=== PATIENT | female | born 2000 | race American Indian/Alaskan Native ===

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

== ENCOUNTER 2018-03-20 14:16 | Emergency (ER) | payer SELFPAY | END 2018-03-20 17:59 | disposition left against medical advice (07) | LOC: ED 14:16 | DX: Z11.1 Encounter for screening for respiratory tuberculosis (principal); Z53.21 Procedure and treatment not carried out due to patient leaving prior to being seen by health care provider ==

== ENCOUNTER 2020-08-02 02:22 | Outpatient (CLI) | payer SELFPAY ==
--- NOTE | 2020-08-02 00:30 | Emergency Department Report ---
Blank Doc - Documentation Documentation: 20-year-old female that presents with vaginal bleeding and pelvic pain. Patient stated she is unsure how far along she is but believes that she is about 6 months . Patient was sent to L&D which then was sent back due to no confirmation of . 1- This initial assessment/diagnostic orders/clinical plan/ treatment(s) is/are subject to change based on pt's health status, clinical progression and re- assessment by fellow clinical providers in the ED. Further treatment and workup at subsequent clinical provers discretion. Patient/guardians urged not to elope from ED as their condition may be serious if not clinically assessed and managed. 2-labs 3-UA 4-ultrasound OB
[2020-08-02 01:36] LABS: Basophils # (Auto) 0.1 K/mm3 (0.0-0.1); Basophils % (Auto) 0.7 % (0.0-1.8); Eosinophils # (Auto) 0.1 K/mm3 (0.0-0.4); Hematocrit 26.1 % (30.3-42.9); Hemoglobin 8.3 gm/dl (10.1-14.3); Lymphocytes % (Auto) 16.6 % (13.4-35.0); Mean Corpuscular HGB Conc 32 % (30-34); Platelet Count 451 K/mm3 (140-440); Red Blood Count 4.02 M/mm3 (3.65-5.03); Red Cell Distribution Width 17.9 % (13.2-15.2)
[2020-08-02 01:37] LABS: INR 0.93 (0.87-1.13); Mean Corpuscular Volume 65 fl (79-97)
[2020-08-02 01:38] LABS: Partial Thromboplastin Time 25.5 Sec. (24.2-36.6)
[2020-08-02 01:59] LABS: Platelet Estimate Consistent w Auto; Total Cells Counted 100
--- NOTE | 2020-08-02 02:02 | Emergency Department Report ---
ED HPI - General Chief complaint: Vaginal Bleeding Stated complaint: SPOTTING BLOOD//WKS UNKNOWN Time Seen by Provider: 08/02/20 00:28 Source: patient Mode of arrival: Ambulatory Limitations: No Limitations - History of Present Illness Initial comments: This is a 20-year-old female nontoxic, well nourished in appearance, no acute signs of distress presents to the ED with c/o of vaginal bleeding and pelvic pain times several days. Patient stated she is unsure how far along she is but believes she is about 6 months . Patient denies any abdominal pain. Patient denies any vaginal discharge or foul odor. Patient denies any nausea, vomiting, chest pain, shortness of breathe, fever, chills, headache, stiff neck, numbness, tingling. Patient denies any urinary symptoms. Patient denies any allergies or PMH. MD Complaint: vaginal bleeding -: days(s) Location: pelvis Radiation: none Severity: mild Severity scale (0 -10): 3 Quality: cramping Consistency: constant Improves with: none Worsens with: none Associated symptoms: vaginal bleeding. denies: nausea/vomiting, vaginal discharge, abdominal pain, dysuria, headache, vision changes, malaise, dys paruenia, rash, seizure, shortness of breath, syncope, weakness Vaginal bleeding: light :: Yes Pre- care: none - Related Data Previous Rx's Medication Instructions Recorded Last Taken Type Ferrous Sulfate 325 mg PO BID #60 tablet. 08/12/17 Unknown Rx HYDROcodone/APAP 5-325 [[place] 1 each PO Q6HR PRN #30 tablet 08/12/17 Unknown Rx 5/325] Ibuprofen [Motrin] 600 mg PO Q8H PRN #30 tablet 08/12/17 Unknown Rx Allergies Allergy/AdvReac Type Severity Reaction Status Date / Time No Known Allergies Allergy Unverified 05/23/15 12:32 ED Review of Systems ROS: Stated complaint: SPOTTING BLOOD//WKS UNKNOWN Other details as noted in HPI Comment: All other systems reviewed and negative Constitutional: denies: chills, fever Eyes: denies: eye pain, eye discharge, vision change ENT: denies: ear pain, throat pain Respiratory: denies: cough, shortness of breath, wheezing Cardiovascular: denies: chest pain, palpitations Endocrine: no symptoms reported Gastrointestinal: denies: abdominal pain, nausea, diarrhea Genitourinary: abnormal menses. denies: urgency, dysuria, discharge Musculoskeletal: denies: back pain, joint swelling, arthralgia Skin: denies: rash, lesions Neurological: denies: headache, weakness, paresthesias Psychiatric: denies: anxiety, depression Hematological/Lymphatic: denies: easy bleeding, easy bruising ED Past Medical Hx - Past Medical History Previous Medical History?: No Hx Hypertension: No Hx Congestive Heart Failure: No Hx Diabetes: No Hx Deep Vein Thrombosis: No Hx Renal Disease: No Hx Sickle Cell Disease: No Hx Seizures: No Hx Asthma: No Hx COPD: No Hx HIV: No - Social History Smoking Status: Current Some Day Smoker - Medications Home Medications: Home Medications Medication Instructions Recorded Confirmed Last Taken Type Ferrous Sulfate 325 mg PO BID #60 tablet. 08/12/17 Unknown Rx HYDROcodone/APAP 5-325 [[place] 1 each PO Q6HR PRN #30 tablet 08/12/17 Unknown Rx 5/325] Ibuprofen [Motrin] 600 mg PO Q8H PRN #30 tablet 08/12/17 Unknown Rx ED Physical Exam - General Limitations: No Limitations General appearance: alert, in no apparent distress - Head Head exam: Present: atraumatic, normocephalic - Eye Eye exam: Present: normal appearance - Neck Neck exam: Present: normal inspection, full ROM - Respiratory Respiratory exam: Absent: respiratory distress - Cardiovascular Cardiovascular Exam: Present: regular rate - GI/Abdominal GI/Abdominal exam: Present: soft, normal bowel sounds. Absent: distended, tenderness, guarding, rebound, rigid, diminished bowel sounds - Extremities Exam Extremities exam: Present: normal inspection, full ROM - Back Exam Back exam: Present: normal inspection, full ROM. Absent: tenderness, CVA tenderness (R), CVA tenderness (L), muscle spasm, paraspinal tenderness, vertebral tenderness, rash noted - Neurological Exam Neurological exam: Present: alert, oriented X3, normal gait - Psychiatric Psychiatric exam: Present: normal affect, normal mood - Skin Skin exam: Present: warm, dry, intact, normal color. Absent: rash ED Course Vital Signs 08/02/20 00:48 Temperature 98.4 F Pulse Rate 90 Respiratory 17 Rate Blood Pressure 132/87 O2 Sat by Pulse 98 Oximetry - Reevaluation(s) Reevaluation #1: 08/02/20 02:01 Patient is speaking in full sentences with no signs of distress noted. ED Medical Decision Making - Lab Data Result diagrams: 08/02/20 00:46 Lab Results 08/02/20 08/02/20 08/02/20 Range/Units 00:46 00:46 00:46 WBC 11.9 H (4.5-11.0) K/mm3 RBC 4.02 (3.65-5.03) M/mm3 Hgb 8.3 L (10.1-14.3) gm/dl Hct 26.1 L (30.3-42.9) % MCV 65 L (79-97) fl MCH 21 L (28-32) pg MCHC 32 (30-34) % RDW 17.9 H (13.2-15.2) % Plt Count 451 H (140-440) K/mm3 Lymph % (Auto) 16.6 (13.4-35.0) % [place] % (Auto) 8.0 H (0.0-7.3) % Eos % (Auto) 1.0 (0.0-4.3) % Baso % (Auto) 0.7 (0.0-1.8) % Lymph # (Auto) 2.0 (1.2-5.4) K/mm3 [place] # (Auto) 1.0 H (0.0-0.8) K/mm3 Eos # (Auto) 0.1 (0.0-0.4) K/mm3 Baso # (Auto) 0.1 (0.0-0.1) K/mm3 Add Manual Diff Complete Total Counted 100 Seg Neutrophils % 73.7 H (40.0-70.0) % Seg Neuts % (Manual) 74.0 H (40.0-70.0) % Lymphocytes % (Manual) 17.0 (13.4-35.0) % Monocytes % (Manual) 8.0 H (0.0-7.3) % Eosinophils % (Manual) 1.0 (0.0-4.3) % Nucleated RBC % Not Reportable Seg Neutrophils # 8.7 H (1.8-7.7) K/mm3 Seg Neutrophils # Man 8.8 H (1.8-7.7) K/mm3 Band Neutrophils # 0.0 K/mm3 Lymphocytes # (Manual) 2.0 (1.2-5.4) K/mm3 Abs React Lymphs (Man) 0.0 K/mm3 Monocytes # (Manual) 1.0 H (0.0-0.8) K/mm3 Eosinophils # (Manual) 0.1 (0.0-0.4) K/mm3 Basophils # (Manual) 0.0 (0.0-0.1) K/mm3 Metamyelocytes # 0.0 K/mm3 Myelocytes # 0.0 K/mm3 Promyelocytes # 0.0 K/mm3 Blast Cells # 0.0 K/mm3 WBC Morphology Not Reportable Hypersegmented Neuts Not Reportable Hyposegmented Neuts Not Reportable Hypogranular Neuts Not Reportable Smudge Cells Not Reportable Toxic Granulation Not Reportable Toxic Vacuolation Not Reportable Dohle Bodies Not Reportable Pelger-Huet Anomaly Not Reportable Talia Rods Not Reportable Platelet Estimate Consistent w auto Clumped Platelets Not Reportable Plt Clumps, EDTA Not Reportable Large Platelets Not Reportable Giant Platelets Not Reportable Platelet Satelliting Not Reportable Plt Morphology Comment Not Reportable RBC Morphology Not Reportable Dimorphic RBCs Not Reportable Polychromasia Not Reportable Hypochromasia Not Reportable Poikilocytosis Not Reportable Anisocytosis Not Reportable Microcytosis Not Reportable Macrocytosis Not Reportable Spherocytes Not Reportable Pappenheimer Bodies Not Reportable Sickle Cells Not Reportable Target Cells Not Reportable Tear Drop Cells Not Reportable Ovalocytes Not Reportable Helmet Cells Not Reportable [place] Bodies Not Reportable [place] Rings Not Reportable [place] Cells Not Reportable Bite Cells Not Reportable Crenated Cell Not Reportable Elliptocytes Not Reportable Acanthocytes (Spur) Not Reportable Rouleaux Not Reportable Hemoglobin C Crystals Not Reportable Schistocytes Not Reportable Malaria parasites Not Reportable Noel Bodies Not Reportable Hem Pathologist Commnt No PT 12.4 (12.2-14.9) Sec. INR 0.93 (0.87-1.13) APTT 25.5 (24.2-36.6) Sec. HCG, Quant 8501 H (0-4) mIU/mL Blood Type 08/02/20 Range/Units 00:46 WBC (4.5-11.0) K/mm3 RBC (3.65-5.03) M/mm3 Hgb (10.1-14.3) gm/dl Hct (30.3-42.9) % MCV (79-97) fl MCH (28-32) pg MCHC (30-34) % RDW (13.2-15.2) % Plt Count (140-440) K/mm3 Lymph % (Auto) (13.4-35.0) % [place] % (Auto) (0.0-7.3) % Eos % (Auto) (0.0-4.3) % Baso % (Auto) (0.0-1.8) % Lymph # (Auto) (1.2-5.4) K/mm3 [place] # (Auto) (0.0-0.8) K/mm3 Eos # (Auto) (0.0-0.4) K/mm3 Baso # (Auto) (0.0-0.1) K/mm3 Add Manual Diff Total Counted Seg Neutrophils % (40.0-70.0) % Seg Neuts % (Manual) (40.0-70.0) % Lymphocytes % (Manual) (13.4-35.0) % Monocytes % (Manual) (0.0-7.3) % Eosinophils % (Manual) (0.0-4.3) % Nucleated RBC % Seg Neutrophils # (1.8-7.7) K/mm3 Seg Neutrophils # Man (1.8-7.7) K/mm3 Band Neutrophils # K/mm3 Lymphocytes # (Manual) (1.2-5.4) K/mm3 Abs React Lymphs (Man) K/mm3 Monocytes # (Manual) (0.0-0.8) K/mm3 Eosinophils # (Manual) (0.0-0.4) K/mm3 Basophils # (Manual) (0.0-0.1) K/mm3 Metamyelocytes # K/mm3 Myelocytes # K/mm3 Promyelocytes # K/mm3 Blast Cells # K/mm3 WBC Morphology Hypersegmented Neuts Hyposegmented Neuts Hypogranular Neuts Smudge Cells Toxic Granulation Toxic Vacuolation Dohle Bodies Pelger-Huet Anomaly Talia Rods Platelet Estimate Clumped Platelets Plt Clumps, EDTA Large Platelets Giant Platelets Platelet Satelliting Plt Morphology Comment RBC Morphology Dimorphic RBCs Polychromasia Hypochromasia Poikilocytosis Anisocytosis Microcytosis Macrocytosis Spherocytes Pappenheimer Bodies Sickle Cells Target Cells Tear Drop Cells Ovalocytes Helmet Cells [place]ante-[place] Bodies [place] Rings [place] Cells Bite Cells Crenated Cell Elliptocytes Acanthocytes (Spur) Rouleaux Hemoglobin C Crystals Schistocytes Malaria parasites Noel Bodies Hem Pathologist Commnt PT (12.2-14.9) Sec. INR (0.87-1.13) APTT (24.2-36.6) Sec. HCG, Quant (0-4) mIU/mL Blood Type A POSITIVE - Radiology Data Referring Physician: YO CHENEY Patient Name: MICHAEL MORA Date of : 2000 Sex: Female Report Date: 2020-08-02 Report Status: Finalized [facility] [address] [place] [address] Ultrasound Report Signed Patient: MICHAEL MORA MR#: [id number] : 2000 Acct:[id number] Age/Sex: 20 / F ADM Date: 08/02/20 Loc: ED Attending Dr: Ordering Physician: YO CHENEY NP Date of Service: 08/02/20 Procedure(s): US OB >= 14 weeks Fetus Accession Number(s): [id number] cc: YO CHENEY NP ULTRASOUND OBSTETRIC INDICATION / CLINICAL INFORMATION: vaginal bleeding and pelvic pain. Clinical Gestational Age (GA) in weeks, days: 23, 0 TECHNIQUE: Transabdominal. COMPARISON: None available. FINDINGS: Single intrauterine . Biparietal Diameter = 5.2 cm = 21, 5 weeks, days Head Circumference = 19.9 cm = 22, 1 weeks, days Abdominal Circumference = 15.2 cm = 20, 3 weeks, days Femur Length = 3.8 cm = 22, 0 weeks, days Average Ultrasound Age (AUA) = 21, 4 weeks, days Heart Rate: 156 beats per minute. Estimated Weight in grams (if calculated): 411 Estimated Weight Growth Percentile (if calculated): Not calculated ANATOMY: organs (including the bladder, stomach, kidneys, heart, umbilical cord, diaphragm, cord insertion, spine and intracranial structures) are visualized and show no significant abnormality with the following exception(s): None. Position: cephalic. Cervix: closed. Length in cm (if measured): 3.4 Placenta: posterior and free of the os. Amniotic Fluid Volume: normal Amniotic Fluid Index (CRISTÓBAL) in cm (if calculated): Not calculated. Maternal Adnexa: No significant abnormality. IMPRESSION: 1. Single, living intrauterine with estimated sonographic age of 21, 4 weeks, days. 2. No significant sonographic abnormality. Signer Name: Rena Magana MD Signed: 08/02/2020 1:58 AM [facility]station [id number] Transcribed By: DT Dictated By: Toby Magana MD Electronically Authenticated By: Toby Magana MD Signed Date/Time: 08/02/20157 DD/ 2 TD/TT: - Medical Decision Making 21-year-old female that presents with threatened miscarriage. Patient is stable and was examined by me. Ultrasound measures patient is about 22 weeks. Patient is notified of the results with no questions noted by the patient. Patient is transferred to L&D floor for further evaluation and treatment by RN. At time of transfer, the patient does not seem toxic or ill in appearance. No acute signs of distress noted. Patient agrees to treatment plan of care. No further questions noted by the patient. Critical care attestation.: If time is entered above; I have spent that time in minutes in the direct care of this critically ill patient, excluding procedure time. ED Disposition Clinical Impression: Threatened miscarriage Qualifiers: Weeks of gestation: 22 weeks Qualified Code(s): Z3A.22 - 22 weeks gestation of Disposition: DC-01 TO HOME OR SELFCARE Is pt being admited?: No Does the pt Need Aspirin: No Condition: Stable Time of Disposition: 02:16
[2020-08-02 03:12] VITALS: BP 122/72
[2020-08-02] MEDS ORDERED: LACTATED RINGERS 1,000 ML IV ONE (03:12)
[2020-08-02 03:49] LABS: Mucus,Urine FEW /HPF
[2020-08-02 03:59] LABS: Bacteria,Urine 1+ /HPF (Negative); Bilirubin,Urine NEG (Negative); Blood,Urine SM (Negative); Color,Urine Yellow (Yellow); Protein,Urine <15 mg/dL mg/dL (Negative); Urobilinogen,Urine < 2.0 mg/dL (<2.0)
[2020-08-02 04:05] LABS: Amphetamine Screen,Urine PRESUMPTIVE NEGATIVE; Benzodiazepines Screen,Urine PRESUMPTIVE NEGATIVE; Cannabinoid Screen,Urine PRESUMPTIVE POSITIVE; Cocaine Screen,Urine PRESUMPTIVE NEGATIVE; Methadone Screen,Urine PRESUMPTIVE NEGATIVE; Opiate Screen,Urine PRESUMPTIVE NEGATIVE
== END 2020-08-02 04:45 | disposition home or self-care (01) ==
LOC: TRG 02:22 → EDSTATUS 02:24 → APU 02:27 → TRG 04:45
PROVIDERS: ATTEND Obstetrics & Gynecology
DX: O26.852 Spotting complicating pregnancy, second trimester (principal); Z3A.21 21 weeks gestation of pregnancy
CPT/HCPCS: 36415; 59025; 76805; 80307; 81001; 84702; 85007; 85025; 85610; 85730; 86900; 86901; 87086

== ENCOUNTER 2020-10-29 13:31 | Outpatient (CLI) | payer SELFPAY ==
[2020-10-29 14:08] VITALS: BP 117/75
[2020-10-29] MEDS ORDERED: ACETAMINOPHEN 500 MG TAB PO ONE (14:11)
[2020-10-29] MEDS ORDERED: LACTATED RINGERS 1,000 ML IV SCH (14:15)
[2020-10-29 14:42] LABS: Bilirubin,Urine NEG (Negative); Blood,Urine NEG (Negative); Color,Urine Yellow (Yellow); Mucus,Urine 1+ /HPF; Protein,Urine <15 mg/dL mg/dL (Negative); Urobilinogen,Urine < 2.0 mg/dL (<2.0)
[2020-10-29 14:48] LABS: Amphetamine Screen,Urine PRESUMPTIVE NEGATIVE; Benzodiazepines Screen,Urine PRESUMPTIVE NEGATIVE; Cannabinoid Screen,Urine PRESUMPTIVE POSITIVE; Cocaine Screen,Urine PRESUMPTIVE NEGATIVE; Methadone Screen,Urine PRESUMPTIVE NEGATIVE; Opiate Screen,Urine PRESUMPTIVE NEGATIVE
== END 2020-10-29 16:22 | disposition home or self-care (01) ==
LOC: TRG 13:31 → APU 13:32 → TRG 16:22
PROVIDERS: ATTEND Obstetrics & Gynecology
DX: O47.03 False labor before 37 completed weeks of gestation, third trimester (principal); Z3A.33 33 weeks gestation of pregnancy
CPT/HCPCS: 59025; 80307; 81001; 87086

== ENCOUNTER 2020-11-26 18:05 | Inpatient (IN) | payer MEDICAID ==
[2020-11-26] MEDS ORDERED: LACTATED RINGERS 1,000 ML IV ONE (20:02)
[2020-11-26 20:21] LABS: Basophils # (Auto) 0.1 K/mm3 (0.0-0.1); Basophils % (Auto) 0.6 % (0.0-1.8); Eosinophils % (Auto) 0.4 % (0.0-4.3); Hematocrit 21.6 % (30.3-42.9); Hemoglobin 6.6 gm/dl (10.1-14.3); Lymphocytes # (Auto) 1.6 K/mm3 (1.2-5.4); Lymphocytes % (Auto) 15.2 % (13.4-35.0); Mean Corpuscular HGB Conc 31 % (30-34); Monocytes # (Auto) 0.9 K/mm3 (0.0-0.8); Monocytes % (Auto) 8.4 % (0.0-7.3); Platelet Count 392 K/mm3 (140-440); Red Blood Count 3.59 M/mm3 (3.65-5.03); Red Cell Distribution Width 18.9 % (13.2-15.2)
[2020-11-26 20:28] LABS: Mean Corpuscular Volume 60 fl (79-97)
[2020-11-26 20:51] LABS: Hepatitis C Virus Antibody Non-Reactive (NonReactive)
[2020-11-26] MEDS ORDERED: diphenhydrAMINE 25 MG CAP PO PRN (20:59)
[2020-11-26] MEDS ORDERED: ONDANSETRON 4 MG/2 ML INJ IV PRN (20:59)
[2020-11-26] MEDS ORDERED: DOCUSATE SODIUM 100 MG CAP PO PRN (20:59)
[2020-11-26] MEDS ORDERED: MAGNESIUM HYDROXIDE (MOM) ORAL LIQD UDC PO PRN (20:59)
[2020-11-26] MEDS ORDERED: ACETAMINOPHEN 325 MG TAB PO PRN (20:59)
[2020-11-26] MEDS ORDERED: ALUM-MAG HYDROXIDE-SIMETHICONE 200-200-20MG/5ML ORAL LIQD 30 ML PO PRN (20:59)
[2020-11-26] MEDS ORDERED: LACTATED RINGERS 1,000 ML IV SCH (21:00)
--- NOTE | 2020-11-26 21:03 | History and Physical Report ---
History of Present Illness Date of examination: 11/26/20 (No PNC, abdominal pain, dizzy) Date of admission: 11/26/2020 Chief complaint: I'm feeling dizzy and my cervix hurts. History of present illness: Pt is a 20 y.o. @ 36.5 wks per her stated LMP. Ultrasound on 08/02/20 gave her a gestational age of 21.4 wks, which would give her a EDC of 12/09/20, 38.1 wks. She has had no PNC this . Presented to triage because "my cervix hurt and I'm dizzy. I'm also having contractions, I think my water broke, and I haven't had anything to eat since last night." CBC drawn while in triage and H/H was found to be 6.6/21.6. Past History Past Medical History: no pertinent history Past Surgical History: no surgical history ORDER PULLER History: other (She had a in 2014 @ 40 weeks with limited PNC and elevated blood pressures at the end of her . @ 39+ wks 2018 limited to no PNC. ) Family/Genetic History: none Social history: smoking (Marijuana use) - Obstetrical History Expected Date of Delivery: 12/09/20 Actual Gestation: 38 Week(s) 1 Day(s) : 3 Para: 2 Hx # Term Pregnancies: 2 Number of Pregnancies: 0 Spontaneous Abortions: 0 Induced : 0 Number of Living Children: 2 Medications and Allergies Allergies Allergy/AdvReac Type Severity Reaction Status Date / Time No Known Allergies Allergy Verified 10/29/20 14:29 Home Medications Medication Instructions Recorded Confirmed Last Taken Type Ferrous Sulfate 325 mg PO BID #60 tablet. 08/12/17 Unknown Rx HYDROcodone/APAP 5-325 [[place] 1 each PO Q6HR PRN #30 tablet 08/12/17 Unknown Rx 5/325] Ibuprofen [Motrin] 600 mg PO Q8H PRN #30 tablet 08/12/17 Unknown Rx Active Meds: Active Medications Docusate Sodium (Docusate Sodium 100 Mg Cap) 100 mg PO Q12H PRN PRN Reason: Constipation Lactated Ringer's (Lactated Ringers) 1,000 mls @ 999 mls/hr IV BOLUS ONE Stop: 11/26/20 21:02 Last Admin: 11/26/20 19:11 Dose: 999 mls/hr Documented by: Multivitamins/Iron/Calcium ( [id number] Fumarate-Folic Acid Vit Tab) 1 each PO QDAY MARCIAL Review of Systems All systems: negative Neurological: other (Dizzy) - Vital Signs Vital signs: Vital Signs Pulse BP 110 H 106/67 11/26/20 18:35 11/26/20 18:35 Temp Pulse Resp BP Pulse Ox 98.8 F 96 H 20 106/67 99 11/26/20 19:11 11/26/20 20:56 11/26/20 19:11 11/26/20 18:35 11/26/20 20:56 - Physical Exam Breasts: Positive: deferred Cardiovascular: Regular rate Lungs: Positive: Normal air movement Abdomen: Positive: normal appearance, soft Genitourinary (Female): Positive: normal external genitalia, normal perenium Vulva: both: normal Vagina: Positive: normal moisture Uterus: Positive: normal size, normal contour Extremities: Positive: normal - Obstetrical FHR: category 1 Uterine Contraction Monitor Mode: External Cervical Dilatation: 0 Cervical Effacement Percentage: 0 station: -3 Uterine Contraction Pattern: Irregular Uterine Tone Measurement Phase: Resting Uterine Contraction Intensity: Mild Results Result Diagrams: 11/26/20 20:03 Abnormal lab results 11/26/20 Range/Units 20:03 RBC 3.59 L (3.65-5.03) M/mm3 Hgb 6.6 L (10.1-14.3) gm/dl Hct 21.6 L (30.3-42.9) % MCV 60 L (79-97) fl MCH 19 L (28-32) pg RDW 18.9 H (13.2-15.2) % [place] % (Auto) 8.4 H (0.0-7.3) % [place] # (Auto) 0.9 H (0.0-0.8) K/mm3 Seg Neutrophils % 75.4 H (40.0-70.0) % Seg Neutrophils # 7.9 H (1.8-7.7) K/mm3 All other labs normal. GBS UNKNOWN labs drawn on admission. Assessment and Plan A: 20 y.o. @ 38.1 wks via u/s on 08/02/20. Anemia in . - Patient Problems (1) Anemia affecting , antepartum Current Visit: Yes Status: Acute Plan to address problem: Blood transfusion ordered. Will drawn post transfusion H/H 4 hrs after blood transfusion completed. (2) with 38 completed weeks gestation Current Visit: Yes Status: Acute Plan to address problem: Admit to labor and delivery for 24 hrs observation. Drawn labs. UDS ordered.
[2020-11-26] MEDS ORDERED: SODIUM CHLORIDE 0.9% 500 ML 500 ML IV ONE (23:26)
[2020-11-27 03:32] LABS: Bacteria,Urine 1+ /HPF (Negative); Bilirubin,Urine NEG (Negative); Blood,Urine NEG (Negative); Color,Urine Straw (Yellow); Protein,Urine <15 mg/dL mg/dL (Negative); Urobilinogen,Urine < 2.0 mg/dL (<2.0)
[2020-11-27 03:35] LABS: Amphetamine Screen,Urine Negative; Benzodiazepines Screen,Urine Negative; Cannabinoid Screen,Urine Negative; Cocaine Screen,Urine Negative; Methadone Screen,Urine Negative; Opiate Screen,Urine Negative
[2020-11-27] MEDS ORDERED: fentaNYL 100 MCG/2 ML INJ IV ONE (05:36)
--- NOTE | 2020-11-27 05:41 | Progress Note ---
Assessment and Plan A: 20 y.o. @ 38.2 wks, anemia of . Feeling ctxs. Cervical exam 0/0/-3. - Patient Problems (1) Anemia affecting , antepartum Onset Date: ~11/26/20 Current Visit: Yes Status: Acute Plan to address problem: Blood transfusion completed @ 0445am. H/H to be drawn @ 0900am. (2) with 38 completed weeks gestation Current Visit: Yes Status: Acute Plan to address problem: Continue with EFM to monitor status. Pain medication IV ordered X1. Subjective - Subjective Date of service: 11/27/20 (Pt starting to feel ctxs) Principal diagnosis: IUP @ 38.2 wks, anemia in , no care Patient reports: new complaints, contractions Objective - Vital Signs Vital Signs: Vital Signs - 12hr 11/26/20 11/26/20 11/26/20 18:35 18:36 18:41 Temperature Pulse Rate 110 H 111 H 91 H Respiratory Rate Blood Pressure 106/67 Blood Pressure [Left] O2 Sat by Pulse 100 99 Oximetry 11/26/20 11/26/20 11/26/20 18:44 18:46 18:51 Temperature Pulse Rate 112 H 106 H 85 Respiratory Rate Blood Pressure Blood Pressure [Left] O2 Sat by Pulse 93 100 100 Oximetry 11/26/20 11/26/20 11/26/20 18:56 19:00 19:01 Temperature Pulse Rate 95 H 78 101 H Respiratory Rate Blood Pressure Blood Pressure [Left] O2 Sat by Pulse 100 84 100 Oximetry 11/26/20 11/26/20 11/26/20 19:06 19:11 19:16 Temperature 98.8 F Pulse Rate 106 H 93 H 87 Respiratory 20 Rate Blood Pressure Blood Pressure [Left] O2 Sat by Pulse 100 100 100 Oximetry 11/26/20 11/26/20 11/26/20 19:21 19:26 19:31 Temperature Pulse Rate 83 80 91 H Respiratory Rate Blood Pressure Blood Pressure [Left] O2 Sat by Pulse 98 100 100 Oximetry 11/26/20 11/26/20 11/26/20 19:32 19:36 19:38 Temperature Pulse Rate 98 H 103 H 104 H Respiratory Rate Blood Pressure Blood Pressure [Left] O2 Sat by Pulse 93 100 86 Oximetry 11/26/20 11/26/20 11/26/20 19:41 19:46 19:49 Temperature Pulse Rate 93 H 79 88 Respiratory Rate Blood Pressure Blood Pressure [Left] O2 Sat by Pulse 90 100 83 L Oximetry 11/26/20 11/26/20 11/26/20 19:51 19:56 20:01 Temperature Pulse Rate 85 71 71 Respiratory Rate Blood Pressure Blood Pressure [Left] O2 Sat by Pulse 100 100 100 Oximetry 11/26/20 11/26/20 11/26/20 20:06 20:11 20:16 Temperature Pulse Rate 71 93 H 82 Respiratory Rate Blood Pressure Blood Pressure [Left] O2 Sat by Pulse 100 100 100 Oximetry 11/26/20 11/26/20 11/26/20 20:21 20:26 20:31 Temperature Pulse Rate 92 H 82 78 Respiratory Rate Blood Pressure Blood Pressure [Left] O2 Sat by Pulse 100 100 100 Oximetry 11/26/20 11/26/20 11/26/20 20:36 20:41 20:46 Temperature Pulse Rate 85 79 78 Respiratory Rate Blood Pressure Blood Pressure [Left] O2 Sat by Pulse 100 100 100 Oximetry 11/26/20 11/26/20 11/26/20 20:51 20:56 21:01 Temperature Pulse Rate 80 96 H 89 Respiratory Rate Blood Pressure Blood Pressure [Left] O2 Sat by Pulse 100 99 100 Oximetry 11/26/20 11/26/20 11/26/20 21:06 21:11 21:16 Temperature Pulse Rate 98 H 79 95 H Respiratory Rate Blood Pressure Blood Pressure [Left] O2 Sat by Pulse 100 100 99 Oximetry 11/26/20 11/26/20 11/26/20 21:21 21:26 21:31 Temperature Pulse Rate 113 H 97 H 80 Respiratory Rate Blood Pressure Blood Pressure [Left] O2 Sat by Pulse 100 100 100 Oximetry 11/26/20 11/26/20 11/26/20 21:36 21:41 23:54 Temperature 98.7 F Pulse Rate 79 82 90 Respiratory 16 Rate Blood Pressure Blood Pressure 114/65 [Left] O2 Sat by Pulse 100 99 Oximetry 11/26/20 11/27/20 11/27/20 23:56 00:08 00:13 Temperature Pulse Rate 90 94 H 91 H Respiratory Rate Blood Pressure 114/65 Blood Pressure [Left] O2 Sat by Pulse 100 100 Oximetry 11/27/20 11/27/20 11/27/20 00:18 00:23 00:28 Temperature Pulse Rate 94 H 94 H 91 H Respiratory Rate Blood Pressure Blood Pressure [Left] O2 Sat by Pulse 100 100 100 Oximetry 11/27/20 11/27/20 11/27/20 00:33 00:48 00:53 Temperature Pulse Rate 97 H 101 H 85 Respiratory Rate Blood Pressure Blood Pressure [Left] O2 Sat by Pulse 100 100 100 Oximetry 11/27/20 11/27/20 11/27/20 00:56 00:58 01:03 Temperature Pulse Rate 92 H 84 91 H Respiratory Rate Blood Pressure 103/57 Blood Pressure [Left] O2 Sat by Pulse 100 100 Oximetry 11/27/20 11/27/20 11/27/20 01:08 01:13 01:14 Temperature 98 F Pulse Rate 85 88 85 Respiratory 17 Rate Blood Pressure 125/65 Blood Pressure [Left] O2 Sat by Pulse 100 100 100 Oximetry 11/27/20 11/27/20 11/27/20 01:18 01:20 01:23 Temperature 98.6 F Pulse Rate 87 86 82 Respiratory 16 Rate Blood Pressure 117/59 Blood Pressure [Left] O2 Sat by Pulse 100 100 100 Oximetry 11/27/20 11/27/20 11/27/20 01:25 01:28 01:30 Temperature 98.3 F Pulse Rate 97 H 97 H 91 H Respiratory 16 17 Rate Blood Pressure 116/65 122/67 Blood Pressure [Left] O2 Sat by Pulse 100 100 100 Oximetry 11/27/20 11/27/20 11/27/20 01:31 01:33 01:38 Temperature Pulse Rate 88 101 H 106 H Respiratory Rate Blood Pressure 122/67 Blood Pressure [Left] O2 Sat by Pulse 100 100 Oximetry 11/27/20 11/27/20 11/27/20 01:43 01:45 01:46 Temperature 98.2 F Pulse Rate 93 H 102 H 93 H Respiratory 16 Rate Blood Pressure 119/72 119/72 Blood Pressure [Left] O2 Sat by Pulse 100 100 Oximetry 11/27/20 11/27/20 11/27/20 01:48 01:53 01:58 Temperature Pulse Rate 104 H 102 H 105 H Respiratory Rate Blood Pressure Blood Pressure [Left] O2 Sat by Pulse 100 100 100 Oximetry 11/27/20 11/27/20 11/27/20 02:00 02:03 02:04 Temperature Pulse Rate 93 H 95 H 93 H Respiratory 17 Rate Blood Pressure 110/54 110/54 Blood Pressure [Left] O2 Sat by Pulse 100 100 Oximetry 11/27/20 11/27/20 11/27/20 02:08 02:13 02:15 Temperature 98.5 F Pulse Rate 91 H 89 90 Respiratory 16 Rate Blood Pressure 116/73 Blood Pressure [Left] O2 Sat by Pulse 100 100 100 Oximetry 11/27/20 11/27/20 11/27/20 02:16 02:18 02:23 Temperature Pulse Rate 93 H 84 103 H Respiratory Rate Blood Pressure 108/64 116/73 Blood Pressure [Left] O2 Sat by Pulse 100 100 Oximetry 11/27/20 11/27/20 11/27/20 02:28 02:30 02:32 Temperature Pulse Rate 100 H 85 96 H Respiratory 17 Rate Blood Pressure 145/108 145/108 Blood Pressure [Left] O2 Sat by Pulse 100 100 Oximetry 11/27/20 11/27/20 11/27/20 02:33 02:38 02:43 Temperature Pulse Rate 101 H 100 H 83 Respiratory Rate Blood Pressure Blood Pressure [Left] O2 Sat by Pulse 100 100 100 Oximetry 11/27/20 11/27/20 11/27/20 02:46 02:48 02:53 Temperature Pulse Rate 86 89 95 H Respiratory Rate Blood Pressure 118/60 Blood Pressure [Left] O2 Sat by Pulse 100 100 Oximetry 11/27/20 11/27/20 11/27/20 02:58 03:00 03:01 Temperature 98.5 F Pulse Rate 88 90 93 H Respiratory 18 Rate Blood Pressure 117/68 117/68 Blood Pressure [Left] O2 Sat by Pulse 100 100 Oximetry 11/27/20 11/27/20 11/27/20 03:07 03:12 03:17 Temperature Pulse Rate 99 H 99 H 96 H Respiratory Rate Blood Pressure Blood Pressure [Left] O2 Sat by Pulse 100 100 100 Oximetry 11/27/20 11/27/20 11/27/20 03:22 03:27 03:30 Temperature Pulse Rate 105 H 96 H 87 Respiratory 18 Rate Blood Pressure 113/67 Blood Pressure [Left] O2 Sat by Pulse 100 100 100 Oximetry 11/27/20 11/27/20 11/27/20 03:32 03:37 03:42 Temperature Pulse Rate 97 H 91 H 83 Respiratory Rate Blood Pressure 113/67 Blood Pressure [Left] O2 Sat by Pulse 100 100 100 Oximetry 11/27/20 11/27/20 11/27/20 03:47 03:50 03:52 Temperature Pulse Rate 85 80 87 Respiratory Rate Blood Pressure Blood Pressure [Left] O2 Sat by Pulse 100 87 100 Oximetry 11/27/20 11/27/20 11/27/20 03:57 04:00 04:02 Temperature 98.5 F Pulse Rate 76 93 H 103 H Respiratory 16 Rate Blood Pressure 126/58 Blood Pressure [Left] O2 Sat by Pulse 99 100 100 Oximetry 11/27/20 11/27/20 11/27/20 04:03 04:07 04:12 Temperature Pulse Rate 100 H 112 H 87 Respiratory Rate Blood Pressure 126/58 Blood Pressure [Left] O2 Sat by Pulse 100 100 Oximetry 11/27/20 11/27/20 11/27/20 04:17 04:22 04:30 Temperature Pulse Rate 86 86 85 Respiratory Rate Blood Pressure Blood Pressure [Left] O2 Sat by Pulse 100 100 100 Oximetry 11/27/20 11/27/20 11/27/20 04:32 04:35 04:40 Temperature Pulse Rate 81 79 79 Respiratory Rate Blood Pressure 135/71 Blood Pressure [Left] O2 Sat by Pulse 100 100 Oximetry 11/27/20 11/27/20 11/27/20 04:42 04:43 04:45 Temperature 98.2 F Pulse Rate 94 H 83 76 Respiratory 16 Rate Blood Pressure 108/64 108/60 Blood Pressure [Left] O2 Sat by Pulse 100 100 Oximetry 11/27/20 11/27/20 11/27/20 04:50 04:55 05:00 Temperature Pulse Rate 69 90 84 Respiratory Rate Blood Pressure Blood Pressure [Left] O2 Sat by Pulse 100 100 100 Oximetry 11/27/20 11/27/20 11/27/20 05:01 05:05 05:10 Temperature Pulse Rate 95 H 90 Respiratory Rate Blood Pressure 122/73 Blood Pressure [Left] O2 Sat by Pulse 100 100 Oximetry 11/27/20 11/27/20 11/27/20 05:15 05:20 05:25 Temperature Pulse Rate 82 81 82 Respiratory Rate Blood Pressure Blood Pressure [Left] O2 Sat by Pulse 100 100 100 Oximetry 11/27/20 11/27/20 11/27/20 05:26 05:30 05:32 Temperature 97.8 F Pulse Rate 77 83 82 Respiratory Rate Blood Pressure 120/58 121/72 Blood Pressure [Left] O2 Sat by Pulse 100 Oximetry 11/27/20 05:35 Temperature Pulse Rate 66 Respiratory Rate Blood Pressure Blood Pressure [Left] O2 Sat by Pulse 100 Oximetry - Exam Narrative Exam: Pt feeling more ctxs. Cervical exam 0/0/-3. IV pain medication ordered X1. Blood transfusion completed. H/H ordered for 0900am. Breasts: deferred Cardiovascular: Regular rate Lungs: Normal air movement Abdomen: Present: normal appearance, soft Vulva: both: normal FHR: category 1 Uterine Contraction Monitor Mode: External Cervical Dilatation: 0 Cervical Effacement Percentage: 0 station: -3 Uterine Contraction Pattern: Irregular Uterine Tone Measurement Phase: Resting Uterine Contraction Intensity: Mild Extremities: normal - Labs Labs: Abnormal Labs 11/26/20 11/26/20 11/27/20 20:03 21:30 03:05 RBC 3.59 L Hgb 6.6 L Hct 21.6 L MCV 60 L MCH 19 L RDW 18.9 H [place] % (Auto) 8.4 H [place] # (Auto) 0.9 H Seg Neutrophils % 75.4 H Seg Neutrophils # 7.9 H Urine WBC (Auto) 14.0 H Crossmatch See Detail Laboratory Results - last 24 hr 11/26/20 11/26/20 11/26/20 19:00 20:03 20:03 WBC 10.5 RBC 3.59 L Hgb 6.6 L Hct 21.6 L MCV 60 L MCH 19 L MCHC 31 RDW 18.9 H Plt Count 392 Lymph % (Auto) 15.2 [place] % (Auto) 8.4 H Eos % (Auto) 0.4 Baso % (Auto) 0.6 Lymph # (Auto) 1.6 [place] # (Auto) 0.9 H Eos # (Auto) 0.0 Baso # (Auto) 0.1 Seg Neutrophils % 75.4 H Seg Neutrophils # 7.9 H Urine Color Urine Turbidity Urine pH Ur Specific [place] Urine Protein Urine Glucose (UA) Urine Ketones Urine Blood Urine Nitrite Urine Bilirubin Urine Urobilinogen Ur Leukocyte Esterase Urine WBC (Auto) Urine RBC (Auto) U Epithel Cells (Auto) Urine Bacteria (Auto) Membranes Rupture Negative Urine Opiates Screen Urine Methadone Screen Ur Barbiturates Screen Ur Phencyclidine Scrn Ur Amphetamines Screen U Benzodiazepines Scrn Urine Cocaine Screen U Marijuana (THC) Screen Drugs of Abuse Note Syphilis IgG Antibody Nonreactive Hep Bs Antigen Hepatitis C Antibody Non-reactive HIV 1&2 Antibody Rapid Non react HIV P24 Antigen Non react Rubella IgG Antibody Immune Blood Type Antibody Screen Crossmatch 11/26/20 11/26/20 11/27/20 20:03 21:30 03:05 WBC RBC Hgb Hct MCV MCH MCHC RDW Plt Count Lymph % (Auto) [place] % (Auto) Eos % (Auto) Baso % (Auto) Lymph # (Auto) [place] # (Auto) Eos # (Auto) Baso # (Auto) Seg Neutrophils % Seg Neutrophils # Urine Color Straw Urine Turbidity Clear Urine pH 7.0 Ur Specific [place] 1.006 Urine Protein <15 mg/dl Urine Glucose (UA) Neg Urine Ketones Neg Urine Blood Neg Urine Nitrite Neg Urine Bilirubin Neg Urine Urobilinogen < 2.0 Ur Leukocyte Esterase Mod Urine WBC (Auto) 14.0 H Urine RBC (Auto) 6.0 U Epithel Cells (Auto) 2.0 Urine Bacteria (Auto) 1+ Membranes Rupture Urine Opiates Screen Urine Methadone Screen Ur Barbiturates Screen Ur Phencyclidine Scrn Ur Amphetamines Screen U Benzodiazepines Scrn Urine Cocaine Screen U Marijuana (THC) Screen Drugs of Abuse Note Syphilis IgG Antibody Hep Bs Antigen Non-reactive Hepatitis C Antibody HIV 1&2 Antibody Rapid HIV P24 Antigen Rubella IgG Antibody Blood Type A POSITIVE Antibody Screen Negative Crossmatch See Detail 11/27/20 03:05 WBC RBC Hgb Hct MCV MCH MCHC RDW Plt Count Lymph % (Auto) [place] % (Auto) Eos % (Auto) Baso % (Auto) Lymph # (Auto) [place] # (Auto) Eos # (Auto) Baso # (Auto) Seg Neutrophils % Seg Neutrophils # Urine Color Urine Turbidity Urine pH Ur Specific [place] Urine Protein Urine Glucose (UA) Urine Ketones Urine Blood Urine Nitrite Urine Bilirubin Urine Urobilinogen Ur Leukocyte Esterase Urine WBC (Auto) Urine RBC (Auto) U Epithel Cells (Auto) Urine Bacteria (Auto) Membranes Rupture Urine Opiates Screen Negative Urine Methadone Screen Negative Ur Barbiturates Screen Negative Ur Phencyclidine Scrn Negative Ur Amphetamines Screen Negative U Benzodiazepines Scrn Negative Urine Cocaine Screen Negative U Marijuana (THC) Screen Negative Drugs of Abuse Note Disclamer Syphilis IgG Antibody Hep Bs Antigen Hepatitis C Antibody HIV 1&2 Antibody Rapid HIV P24 Antigen Rubella IgG Antibody Blood Type Antibody Screen Crossmatch
[2020-11-27 07:03] VITALS: BP 140/56
[2020-11-27 09:02] LABS: Hematocrit 26.5 % (30.3-42.9); Hemoglobin 8.5 gm/dl (10.1-14.3)
[2020-11-27] MEDS ORDERED: PRENATAL VIT27-FE FUMARATE-FOLIC ACID VIT TAB PO SCH (10:00)
== END 2020-11-27 09:52 | disposition home or self-care (01) | DRG 833 ==
LOC: TRG 18:05 → APU 18:07 → LD 20:59 → TRG 20:59
PROVIDERS: ADMIT Obstetrics & Gynecology; ATTEND Obstetrics & Gynecology
PROC: 30233N1 Transfusion of Nonautologous Red Blood Cells into Peripheral Vein, Percutaneous Approach (ICD-10-PCS; principal; 2020-11-27)
DX: O99.323 Drug use complicating pregnancy, third trimester (principal); Z3A.38 38 weeks gestation of pregnancy; F12.90 Cannabis use, unspecified, uncomplicated; O99.013 Anemia complicating pregnancy, third trimester
CPT/HCPCS: 36415; 59025; 80307; 81001; 84112; 85014; 85018; 85025; 86592; 86706; 86762; 86803; 86850; 86900; 86901; 86920; 87086; 87806; 96360; G0378; J3010; J7120; P9016

== ENCOUNTER 2020-12-04 13:36 | Inpatient (IN) | payer MEDICAID, OTHER ==
--- NOTE | 2020-12-04 13:56 | History and Physical Report ---
History of Present Illness Date of examination: 12/04/20 History of present illness: Pt is a 20 y.o. @ 39.1 wks per her stated LMP. Ultrasound on 08/02/20 gave her a gestational age of 21.4 wks, which would give her a EDC of 12/09/20, 39.1 wks. She has had no PNC this . Pt was admitted last week and given blood secondary to severe anemia. Pt presents today with contractions and advanced dilation. Past History Past Medical History: no pertinent history, hematologic disorders Past Surgical History: no surgical history Family/Genetic History: none Social history: single - Obstetrical History Expected Date of Delivery: 12/09/20 Actual Gestation: 39 Week(s) 2 Day(s) : 3 Para: 2 Medications and Allergies Allergies Allergy/AdvReac Type Severity Reaction Status Date / Time No Known Allergies Allergy Verified 10/29/20 14:29 Home Medications Medication Instructions Recorded Confirmed Last Taken Type Ferrous Sulfate 325 mg PO BID #60 tablet. 08/12/17 Unknown Rx HYDROcodone/APAP 5-325 [[place] 1 each PO Q6HR PRN #30 tablet 08/12/17 Unknown Rx 5/325] Ibuprofen [Motrin] 600 mg PO Q8H PRN #30 tablet 08/12/17 Unknown Rx Docusate Sodium [Colace] 100 mg PO BID PRN #60 capsule 11/27/20 Unknown Rx Ferrous Sulfate [Feosol 325 MG tab] 325 mg PO QDAY #30 tablet 11/27/20 Unknown Rx Review of Systems All systems: negative Genitourinary: pelvic pain, contractions - Physical Exam Breasts: Positive: deferred Cardiovascular: Regular rate, Normal S1, Normal S2 Lungs: Positive: Clear to auscultation, Normal air movement Abdomen: Positive: normal appearance, soft, normal bowel sounds. Negative: distention, tenderness Genitourinary (Female): Positive: normal external genitalia, normal perenium Vulva: both: normal Vagina: Positive: normal moisture. Negative: discharge Cervix: Negative: lesion, discharge Uterus: Positive: normal size, normal contour Adnexa: both: normal Anus/Rectum: Positive: normal perianal skin, heme negative. Negative: rectal mass, hemorrhoids Extremities: Deep Tendon Reflex Grade: Normal +2 - Obstetrical FHR: auscultation normal Cervical Dilatation: 7 Cervical Effacement Percentage: 100 station: -2 Uterine Contraction Pattern: Regular Uterine Contraction Intensity: Moderate Results All other labs normal. Assessment and Plan IUP at 39 weeks with no care here in active labor. Admit for same. AROM. Treat for unknown GBS. Anticipate .
[2020-12-04] MEDS ORDERED: ACETAMINOPHEN 325 MG TAB PO PRN (13:57)
[2020-12-04] MEDS ORDERED: ePHEDrine SULFATE 50 MG/1 ML INJ IV PRN (13:57)
[2020-12-04] MEDS ORDERED: MINERAL OIL 30 ML ORAL LIQD PO PRN (13:57)
[2020-12-04] MEDS ORDERED: TERBUTALINE 1 MG/1 ML INJ SUB-Q PRN (13:57)
[2020-12-04] MEDS ORDERED: LACTATED RINGERS 1,000 ML IV SCH (14:00)
[2020-12-04] MEDS ORDERED: OXYTOCIN DRIP 30 UNITS/500 ML BAG IV SCH ×2 (14:00)
[2020-12-04] MEDS ORDERED: LACTATED RINGERS 1,000 ML ONE (14:01)
[2020-12-04] MEDS ORDERED: AMPICILLIN/NS 2 GM/100 ML 2 GM/100 ML BAG IV ONE (14:07)
[2020-12-04] MEDS ORDERED: LIDOCAINE (2%) 20 MG/1 ML VIAL 20 ML MDV INFILTRATI ONE (14:57)
[2020-12-04 15:05] LABS: Hemoglobin 8.8 gm/dl (10.1-14.3); Mean Corpuscular HGB Conc 33 % (30-34); Platelet Count 461 K/mm3 (140-440); Red Blood Count 4.29 M/mm3 (3.65-5.03)
[2020-12-04 15:24] LABS: Mean Corpuscular Volume 63 fl (79-97); Red Cell Distribution Width 23.6 % (13.2-15.2)
--- NOTE | 2020-12-04 15:42 | Procedure Note ---
OB Delivery Note - Delivery Date of Delivery: 12/04/20 Surgeon: BRANDAN CALIX Estimated blood loss: 200cc - Vaginal Delivery presentation: vertex Delivery position: OA Intrapartum events: no care, meconium, precipitous labor- <3hr Delivery monitor: external FHT, external uterine Route of delivery: Delivery placenta: spontaneous Delivery cord: 3 umbilical vessels Episiotomy: none Delivery laceration: 1st degree Delivery repair: vicryl Anesthesia: local Delivery comments: Viable male delivered precipitously over intact perineum with spontaneous rupture of membranes just prior to delivery with meconium-stained fluid. But had spontaneous cry. Infant was placed on maternal abdomen. Cord was clamped and cut and infant was handed to waiting NICU personnel. Placenta was delivered spontaneously and intact. Small laceration was repaired with 2-0 Vicryl and lidocaine. There was excellent hemostasis patient tolerated procedu re well. - Infant A at 1 minute: 8 at 5 minutes: 9 Infant Gender: Male (6 pounds 8 ounces 3046 g)
[2020-12-04] MEDS ORDERED: ONDANSETRON 4 MG/2 ML INJ IV PRN (17:25)
[2020-12-04] MEDS ORDERED: PROMETHAZINE 25 MG TAB PO PRN (17:25)
[2020-12-04] MEDS ORDERED: MAGNESIUM HYDROXIDE (MOM) ORAL LIQD UDC PO PRN (17:25)
[2020-12-04] MEDS ORDERED: diphenhydrAMINE 25 MG CAP PO PRN (17:25)
[2020-12-04] MEDS ORDERED: WITCH HAZEL/ GLYCERIN PAD TP PRN (17:25)
[2020-12-04] MEDS ORDERED: PROMETHAZINE 25 MG RECT SUPP PR PRN (17:25)
[2020-12-04] MEDS ORDERED: LANOLIN/ZINC/DIMETHICONE (LANSINOH) 7 GM TP PRN (17:25)
[2020-12-04] MEDS ORDERED: AMPICILLIN/NS 1 GM/50 ML 1 GM/50 ML BAG IV SCH (18:00)
[2020-12-04] MEDS: IBUPROFEN 600 MG TAB PO SCH (18:27)
[2020-12-04] MEDS: HYDROcodone/ACETAMINOPHEN 5-325 MG TAB PO PRN (21:50)
[2020-12-05] MEDS: HYDROcodone/ACETAMINOPHEN 5-325 MG TAB PO PRN (07:42)
[2020-12-05] MEDS ORDERED: PRENATAL VIT27-FE FUMARATE-FOLIC ACID VIT TAB PO SCH (10:00)
[2020-12-05 10:59] LABS: Hematocrit 24.7 % (30.3-42.9); Hemoglobin 7.9 gm/dl (10.1-14.3)
[2020-12-05] MEDS: IBUPROFEN 600 MG TAB PO SCH ×2 (12:21→23:50)
--- NOTE | 2020-12-05 14:48 | Progress Note ---
Assessment and Plan PPd 1 s/p . Doing well. Pt received no care so must be kept for 48 hours. Will plan for discharge on tomorrow. Subjective - Subjective Date of service: 12/05/20 Interval history: Pt is a 20 y.o. @ 39.1 wks per her stated LMP. Ultrasound on 08/02/20 gave her a gestational age of 21.4 wks, which would give her a EDC of 12/09/20, 39.1 wks. She has had no PNC this . Pt was admitted last week and given blood secondary to severe anemia. Pt presents today with contractions and advanced dilation. Patient reports: appetite normal, voiding normally, pain well controlled, ambulating normally [place]: doing well Objective - Vital Signs Latest vital signs: Vital Signs Temp Pulse Resp BP BP Pulse Ox 12/05/20 12:21 16 12/05/20 09:04 98.0 F 58 L 18 121/71 97 12/05/20 07:42 16 12/05/20 02:02 98.3 F 65 20 122/57 95 12/04/20 21:10 98.1 F 89 20 125/62 96 12/04/20 16:45 97.9 F 80 18 123/79 99 12/04/20 16:26 67 81 L 12/04/20 16:23 98.9 F 63 100 12/04/20 16:18 84 91 12/04/20 16:16 65 91 12/04/20 16:13 78 132/80 100 12/04/20 16:09 86 94 12/04/20 16:08 89 100 12/04/20 16:03 72 99 12/04/20 16:01 81 87 12/04/20 15:58 76 100 12/04/20 15:57 88 129/68 12/04/20 15:53 73 100 12/04/20 15:48 82 100 12/04/20 15:43 79 148/73 97 12/04/20 15:41 86 82 L 12/04/20 15:38 72 100 12/04/20 15:33 80 98 12/04/20 15:31 81 91 12/04/20 15:28 88 100 12/04/20 15:27 79 128/87 12/04/20 15:25 64 90 12/04/20 15:23 88 100 12/04/20 15:20 80 93 12/04/20 15:18 82 99 12/04/20 15:13 63 100 12/04/20 15:12 77 131/81 83 L 12/04/20 15:08 68 100 12/04/20 15:04 82 0 L 12/04/20 15:03 86 96 12/04/20 14:58 85 125/78 84 12/04/20 14:53 83 97 12/04/20 14:52 76 93 12/04/20 14:48 56 L 76 L Intake and Output 12/04/20 12/05/20 12/05/20 22:59 06:59 14:59 Intake Total 240 600 240 Output Total 300 200 Balance -60 400 240 Intake: Oral 240 600 240 Output: Urine 300 200 Void 300 200 Other: Total, Intake Amount 240 120 240 Total, Output Amount 300 200 # Voids Void 1 1 Estimated Blood Loss 200 - Exam Cardiovascular: Present: Regular rate, Normal S1, Normal S2 Lungs: Present: Clear to auscultation, Normal air movement Abdomen: Present: normal appearance, soft Uterus: Present: normal, firm Extremities: Present: normal - Labs Labs: Abnormal lab results 12/04/20 12/05/20 Range/Units 13:55 09:26 WBC 13.3 H (4.5-11.0) K/mm3 Hgb 8.8 L 7.9 L (10.1-14.3) gm/dl Hct 27.0 L 24.7 L (30.3-42.9) % MCV 63 L (79-97) fl MCH 21 L (28-32) pg RDW 23.6 H (13.2-15.2) % Plt Count 461 H (140-440) K/mm3
--- NOTE | 2020-12-05 14:54 | Discharge Summary ---
Providers - Providers Date of Admission: 12/04/20 13:57 Date of discharge: 12/06/20 Attending physician: BRANDAN CALIX 12/04/20 19:04 Consult to Case Management [CONS] Routine Services Needed at Discharge: Other Notified:: [id number] Comment:: No PNC Primary care physician: BRANDAN CALIX Hospitalization Reason for admission: active labor Delivery: Episiotomy: none Laceration: 1st degree Other procedures: none Discharge diagnosis: IUP at term delivered [place] baby: male Hospital course: unremarkable Condition at discharge: Good Disposition: DC-01 TO HOME OR SELFCARE Plan - Discharge Medications Prescriptions: Docusate Sodium [Colace CAP] 100 mg PO BID PRN #60 capsule PRN Reason: Constipation Ferrous Sulfate [Feosol 325 MG tab] 325 mg PO QDAY #30 tablet Ibuprofen [Motrin 600 MG tab] 600 mg PO Q8H PRN #30 tablet PRN Reason: Pain - Provider Discharge Summary Activity: routine, no sex for 6 weeks, no heavy lifting 4 weeks, no strenuous exercise Diet: routine Instructions: routine Additional instructions: [] Smoking cessation referral if applicable(refer to patient education folder for contact #) [] Refer to [facility] Booklet Call your doctor immediately for: * Fever > 100.5 * Heavy vaginal bleeding ( >1 pad per hour) * Severe persistent headache * Shortness of breath * Reddened, hot, painful area to leg or breast * Drainage or odor from incision. * Keep incision clean and dry at all times and follow doctor's instructions regarding bathing/showering - Follow up plan Follow up: BRANDAN CALIX MD [Primary Care Provider] - 12/28/20
[2020-12-06] MEDS: IBUPROFEN 600 MG TAB PO SCH ×2 (05:53→05:58)
[2020-12-06 14:28] VITALS: BP 123/77
== END 2020-12-06 15:00 | disposition home or self-care (01) | DRG 807 ==
LOC: TRG 13:36 → APU 13:37 → LD 13:43 → TRG 14:26 → OB 16:36
PROVIDERS: ADMIT Obstetrics & Gynecology; ATTEND Obstetrics & Gynecology
PROC: 10E0XZZ Delivery of Products of Conception, External Approach (ICD-10-PCS; principal; 2020-12-04)
PROC: 0HQ9XZZ Repair Perineum Skin, External Approach (ICD-10-PCS; 2020-12-04)
DX: O99.02 Anemia complicating childbirth (principal); Z37.0 Single live birth; O70.0 First degree perineal laceration during delivery; O77.0 Labor and delivery complicated by meconium in amniotic fluid; O62.3 Precipitate labor; Z3A.39 39 weeks gestation of pregnancy; Z20.822 Contact with and (suspected) exposure to COVID-19
CPT/HCPCS: 36415; 85014; 85018; 85027; 86592; 86850; 86900; 86901; G0378; U0003